=== PATIENT | female | born 1935 | race Caucasian/White ===

== ENCOUNTER 2023-06-11 07:04 | Emergency (ER) | payer OTHER, SELFPAY ==
[2023-06-11] VITALS (15 sets, daily range): BP systolic 90–133; BP diastolic 56–80; PULSE 82–96; RESP 16; TEMP 36.8; O2SAT 92–99; BMI 25.8
--- NOTE | 2023-06-11 07:31 | ED_ITS ---
HPI - Fall General Chief Complaint: Extremity Injury, Upper Stated Complaint: R Knee Pain Time Seen by Provider: 06/11/23 07:30 Source: patient, EMS and RN notes reviewed Mode of arrival: EMS History of Present Illness HPI Narrative: This is a 88-year-old female on aspirin daily and dyslipidemia with memory issues who presents with right knee pain. Patient had tripped and fell per EMS, she would gotten up to the bathroom at [facility]. She complains of right knee pain and states it is painful to try to move. She states it still her pain is controlled. She does not recall the fall. Denies hitting her head no headache, no neck pain no chest pain or shortness of breath, no back pain. No nausea or vomiting denies any GI or urinary symptoms. Denies pain or injuries elsewhere. Was noted to have a skin tear on her left elbow. Patient knows that she is at the hospital, she thought she might be in [place] rather than [place]. She can tell me she lives at [facility]. Related Data Allergies Allergy/AdvReac Type Severity Reaction Status Date / Time Sulfa (Sulfonamide Allergy Verified 06/11/23 10:53 Antibiotics) Review of Systems Review of Systems ROS Unobtainable: All systems reviewed & are unremarkable except as noted in HPI and below Patient History Social History Smoking Status: Never smoker Smoking Status: Never smoker Substance Use Type: does not use Exam Narrative Exam Narrative: GEN: well nourished, well appearing female, alert and oriented x 3, patient appears to be in mild distress. HEENT: Atraumatic, pupils are equal round reactive to light, extraocular movements are intact, nares are clear, TMs are clear with no fluid, there is no conjunctival pallor. Throat is clear without any exudates, erythema, tonsillar enlargement or uvular deviation HEART: Regular rate and rhythm without murmur, clicks, rubs. Pulses are equal in upper and lower extremities LUNGS:Lungs clear to auscultation, no wheezes, rales, crackles, chest moves symmetrically, no tachypnea or accessory muscle use ABD:bowel sounds normal, soft, non-tender, no guarding, rebound, rigidity, no masses noted, no hepatosplenomegaly :No CVA tenderness MSCL: Non-tender, no muscle atrophy, muscles strength 5/5 upper and lower extremities, full range of motion of bilateral upper extremities, patient has normal range of motion of the left lower extremity, patient has held a little bit in varus position has pain with movement of her right knee appears to have some deformity. She has a healed midline incision over the knee. She is nontender the bone but has pain with movement. No obvious ecchymosis or skin changes. Patient does not have any bony tenderness of her right hip, femur, lower extremity ankle or foot. She is 2+ pulses bilaterally. Sensation both lower extremities with normal plantar flex and dorsiflexion. NEURO:CN 2-12 intact, sensation normal Initial Vital Signs Initial Vital Signs: Vital Signs Temperature 98.2 F 06/11/23 07:05 Pulse Rate 83 06/11/23 07:05 Respiratory Rate 16 06/11/23 07:05 Blood Pressure 116/73 06/11/23 07:05 Pulse Oximetry 99 06/11/23 07:05 Oxygen Delivery Method Room Air 06/11/23 07:05 Course Orders Ordered: ED Orders 06/11/23 07:37 XR knee RT 1to2V Stat 06/11/23 08:39 CBC Auto Diff [Complete Blood Count AUTO DIFF] Stat CMP [Comprehensive Metabolic Panel] Stat PTT Partial Thromboplastin Feng Stat Prothrombin Time INR Stat Type and Screen Stat Discontinued Medications Sodium Chloride (Normal Saline 0.9%) 1,000 mls @ 1,000 mls/hr IV BOLUS ONE Stop: 06/11/23 11:49 Last Admin: 06/11/23 10:57 Dose: 1,000 mls/hr Documented By: RB Vital Signs Vital signs: Vital Signs - 8 hr 06/11/23 07:05 06/11/23 07:53 06/11/23 08:00 Temperature 98.2 F Pulse Rate 83 84 Respiratory Rate 16 Blood Pressure 116/73 107/73 Pulse Oximetry 99 99 Oxygen Delivery Method Room Air 06/11/23 08:00 06/11/23 08:30 06/11/23 08:30 Temperature Pulse Rate 82 89 Respiratory Rate Blood Pressure 125/62 Pulse Oximetry 98 97 Oxygen Delivery Method 06/11/23 09:00 06/11/23 09:00 06/11/23 09:30 Temperature Pulse Rate 96 H Respiratory Rate Blood Pressure 110/62 109/61 Pulse Oximetry 97 Oxygen Delivery Method 06/11/23 09:30 06/11/23 10:00 06/11/23 10:00 Temperature Pulse Rate 89 Respiratory Rate Blood Pressure 105/61 Pulse Oximetry 98 97 Oxygen Delivery Method 06/11/23 10:30 06/11/23 10:30 06/11/23 10:32 Temperature Pulse Rate 90 Respiratory Rate Blood Pressure 90/57 L 94/56 L Pulse Oximetry 98 Oxygen Delivery Method 06/11/23 10:32 06/11/23 10:35 06/11/23 10:35 Temperature Pulse Rate 95 H 93 H Respiratory Rate Blood Pressure 107/56 L Pulse Oximetry 97 98 Oxygen Delivery Method 06/11/23 10:40 06/11/23 10:40 06/11/23 10:45 Temperature Pulse Rate 94 H Respiratory Rate Blood Pressure 111/58 L 102/56 L Pulse Oximetry 99 Oxygen Delivery Method 06/11/23 10:45 06/11/23 10:52 06/11/23 10:52 Temperature Pulse Rate 91 H Respiratory Rate Blood Pressure 133/80 Pulse Oximetry 95 98 Oxygen Delivery Method 06/11/23 11:00 06/11/23 11:30 Temperature Pulse Rate 94 H 94 H Respiratory Rate Blood Pressure Pulse Oximetry 97 92 Oxygen Delivery Method MDM - Fall Lab Data 06/11/23 08:39 06/11/23 08:39 Labs: Lab Results 06/11/23 Range/Units 08:39 WBC 11.4 H (4.5-11.0) X10^3/uL RBC 4.44 (4.0-5.2) X10^6/uL Hgb 12.7 (12.0-16.0) g/dL Hct 38.6 (36-46) % MCV 86.8 (80-100) fL MCH 28.6 (26-34) PG MCHC 32.9 (30-36) % RDW 13.5 (11.6-14.8) % Plt Count 225 (150-400) X10^3/uL Neut % (Auto) 79.9 H (50-75) % Lymph % (Auto) 13.5 L (25-40) % [place] % (Auto) 5.6 (3-14) % Eos % (Auto) 0.3 L (2-4) % Baso % (Auto) 0.7 (0-2) % Neut # (Auto) 9100 H (0378-7538) /uL Lymph # (Auto) 1500 (4964-5737) /uL [place] # (Auto) 600 (0-900) /uL Eos # (Auto) 0 (0-450) /uL Baso # (Auto) 100 (0-100) /uL PT 12.3 (10.1-12.7) SECONDS INR 1.1 (0.9-1.3) APTT 31 (26-36) SECONDS Sodium 136 L (137-145) mmol/L Potassium 4.1 (3.4-5.1) mmol/L Chloride 106 (98-107) mmol/L Carbon Dioxide 26 (22-32) mmol/L BUN 20 H (7-17) mg/dL Creatinine 0.80 (0.52-1.04) mg/dL Estimated GFR > 60 (>60) mL/min BUN/Creatinine Ratio 25.0 H (6-22) Glucose 106 (80-110) mg/dL Calcium 9.3 (8.4-10.2) mg/dL Total Bilirubin 0.6 (0.2-1.3) mg/dL AST 27 (14-36) IU/L ALT 13 (<35) IU/L Alkaline Phosphatase 67 (38-126) U/L Total Protein 6.3 (6.3-8.2) g/dL Albumin 3.7 (3.5-5.0) g/dL Globulin 2.6 (1.7-4.1) g/dL Albumin/Globulin Ratio 1.4 (1.0-2.8) Blood Type A Positive Antibody Screen Negative Imaging Data Extremity x-ray #1: My Impression: Patient has oblique fracture with some displacement and mild angulation just superior to patient's prosthetic knee joint at the distal femur. Radiologist's Impression: Close Knee X-Ray (Signed) Amaury Tovar - 06/11/23 Launch?[address] [address] XRay Report Signed Patient: Kinsey Dela Cruz MR#: [id number] : 1935 Acct:[id number] Age/Sex: 88 / F Date of Service: 06/11/23 Loc: ED Accession Number: [id number] Procedure: XR knee RT 1to2V Ordering Provider: Nury Deras D.O. PROCEDURE: XR KNEE RT 1TO2V INDICATIONS: Right knee pain, fall TECHNIQUE: 2 views of the knee were acquired. COMPARISON: None. FINDINGS: Bones: Spiral fracture through the distal femur metadiaphysis, extending to the femoral component of the knee arthroplasty. Intramedullary jonas of the mid femoral shaft is partially visualized; the fracture does not extend to this site. Soft tissues: Suprapatellar effusion. Extensive vascular calcifications. IMPRESSION: Periprosthetic fracture of the distal femur metadiaphysis, extending to the femoral component of the knee arthroplasty. Dictated by: Amaury Tovar M.D. on 06/11/2023 at 8:34 Approved by: Amaury Tovar M.D. on 06/11/2023 at 8:35 MDM Narrative Medical decision making narrative: Spoke with Orthopedic surgery, reviewed films patient has distal femur fracture just above her prosthesis. Spoke with Dr. Vale who feels patient would likely benefit from transfer to a larger facility such as [facility]. Patient's images pushed to [facility]. Call out for potential transfer. Spoke with patient's son Eloy, he is PT reviewed patient's findings likelihood for transfer. He is agreeable his brother Manjit is the legal DPOA and we also received his contact information for consent if needed. He notes patient does not have any known drug allergy she is had multiple orthopedic surgeries with bilateral knee replacement, hip and shoulder. No other prior cardiac or abdominal surgeries. He states she does take an aspirin a statin and does have likely dementia which is not formally diagnosed by a neurologist. States patient is in process of having a pulsed form filled out but at this time is full code. DPOA_Domenic (son) [phone] Talked with Eloy (son) [phone] (works as physiotherapist and will call and update brother). Patient's labs show white count of 11, hemoglobin 12 platelets of 225, slight leftward shift, coags are negative, sodium 136 potassium 4 1 BUN 20 with a appropriate creatinine, glucose is 106 with normal LFTs. [facility]: Orthopedic surgery reviewed images and accepts for transfer to [facility] ED. Spoke with Dr. Anand Emergency Department who also accepts for transfer to [facility] ED. Patient continues to be hemodynamically stable. Did have a slight decrease in blood pressure to 102, fluids were hung to gravity. Patient is still alert, appropriate on examination. Discharge Plan Departure Patient Disposition: [facility] Clinical Impression: Fracture of distal end of femur, Periprosthetic fracture around internal prosthetic knee joint
--- NOTE | 2023-06-11 07:37 | DI.RAD.S_ITS ---
PROCEDURE: XR KNEE RT 1TO2V INDICATIONS: Right knee pain, fall TECHNIQUE: 2 views of the knee were acquired. COMPARISON: None. FINDINGS: Bones: Spiral fracture through the distal femur metadiaphysis, extending to the femoral component of the knee arthroplasty. Intramedullary jonas of the mid femoral shaft is partially visualized; the fracture does not extend to this site. Soft tissues: Suprapatellar effusion. Extensive vascular calcifications. IMPRESSION: Periprosthetic fracture of the distal femur metadiaphysis, extending to the femoral component of the knee arthroplasty. Dictated by: Amaury Tovar M.D. on 06/11/2023 at 8:34 Approved by: Amaury Tovar M.D. on 06/11/2023 at 8:35
[2023-06-11 08:47] LABS: Add Manual Diff / Slide Review NO; Basophils Absolute Auto 100 /uL (0-100); Basophils Percent Auto 0.7 % (0-2); Eosinophils Absolute Auto 0 /uL (0-450); Eosinophils Percent Auto 0.3 % (2-4); Hematocrit 38.6 % (36-46); Hemoglobin 12.7 g/dL (12.0-16.0); Lymphocytes Absolute Auto 1500 /uL (1100-4500); Lymphocytes Percent Auto 13.5 % (25-40); Mean Corpuscular HGB Conc 32.9 % (30-36); Mean Corpuscular Hemoglobin 28.6 PG (26-34); Mean Corpuscular Volume 86.8 fL (80-100); Monocytes Absolute Auto 600 /uL (0-900); Monocytes Percent Auto 5.6 % (3-14); Neutrophils Absolute Auto 9100 /uL (1500-7000); Neutrophils Percent Auto 79.9 % (50-75); Platelet Count 225 X10^3/uL (150-400); Red Blood Cell Count 4.44 X10^6/uL (4.0-5.2); Red Cell Distribution Width 13.5 % (11.6-14.8); White Blood Cell Count 11.4 X10^3/uL (4.5-11.0)
[2023-06-11 08:53] LABS: INR 1.1 (0.9-1.3); Prothrombin Time 12.3 SECONDS (10.1-12.7)
[2023-06-11 08:55] LABS: PTT Partial Thromboplastin Tim 31 SECONDS (26-36)
[2023-06-11 08:57] LABS: Alanine Aminotransferase 13 IU/L (<35); Albumin 3.7 g/dL (3.5-5.0); Albumin Globulin Ratio 1.4 (1.0-2.8); Alkaline Phosphatase 67 U/L (38-126); Aspartate Aminotransferase 27 IU/L (14-36); Bilirubin Total 0.6 mg/dL (0.2-1.3); Blood Urea Nitrogen 20 mg/dL (7-17); Calcium 9.3 mg/dL (8.4-10.2); Carbon Dioxide 26 mmol/L (22-32); Chloride 106 mmol/L (98-107); Estimated Glomerular Filt Rate > 60 mL/min (>60); Globulin 2.6 g/dL (1.7-4.1); Glucose 106 mg/dL (80-110); HEMOLYSIS 34 (0-50); Potassium 4.1 mmol/L (3.4-5.1); Sodium 136 mmol/L (137-145); Total Protein 6.3 g/dL (6.3-8.2)
[2023-06-11] MEDS: SODIUM CHLORIDE 0.9% 1,000 ML 1000 ML IV (10:57)
--- NOTE | 2023-06-11 11:01 | PC.NURSE ---
This RN notified provider of patient blood pressure that has had a downward direction. Provider ordered a bolus of normal saline. This RN hung the normal saline as ordered.
== END 2023-06-11 11:50 | disposition short-term general hospital (02) ==
PROVIDERS: Emergency Provider Emergency Medicine; PCP Internal Medicine
DX: S72.441A Displaced fracture of lower epiphysis (separation) of right femur, initial encounter for closed fracture (principal); M97.11XA Periprosthetic fracture around internal prosthetic right knee joint, initial encounter; W01.0XXA Fall on same level from slipping, tripping and stumbling without subsequent striking against object, initial encounter
CPT/HCPCS: 29530; 36415; 73560; 80053; 85025; 85610; 85730; 86850; 86900; 86901; 99284